=== PATIENT | male | born 1940 | race Hispanic/Latino ===

== ENCOUNTER 2016-09-13 03:03 | Emergency (ER) | payer MEDICARE ==
--- NOTE | 2016-09-13 06:49 | Cat Scan Report ---
FINAL REPORT PROCEDURE: CT CERVICAL SPINE WO CON TECHNIQUE: Computerized tomography of the cervical spine was performed from the skull base to T1 without contrast material. HISTORY: fall, hematoma to headfall COMPARISON: No prior studies are available for comparison. FINDINGS: The alignment is normal. The heights of the vertebral bodies are maintained. There is loss of disc space height at the C3-4, C4-5, C5-6 and C6-7 levels. Moderate spur formation off the vertebral bodies is identified from the C3 through the C7 vertebral levels. No acute fracture or dislocation of the cervical spine. The AP spinal canal is adequate at all levels. Mild narrowing of the neuroforamen on the right is identified at the C 4 5 and C5-6 levels. IMPRESSION: There is no evidence of an acute fracture dislocation of the cervical spine. Moderate arthritis and degenerative disc changes as described..
[2016-09-13] MEDS ORDERED: ULTRAM PO ONE (07:24)
--- NOTE | 2016-09-13 07:28 | Emergency Department Report ---
ED Fall HPI - General Chief Complaint: Fall Stated Complaint: FALL Time Seen by Provider: 09/13/16 06:08 Source: patient, EMS Mode of arrival: Stretcher Limitations: No Limitations - History of Present Illness Initial Comments: 76-year-old male with a past medical history hypertension , CAD with bypass, and psychiatric disorder presents to the hospital from assisted living status post fall. Patient was ambulating to the rest with a walker and fell and struck his forehead. Positive contusion to forehead. No LOC reported. Fall was unwitnessed. Patient alert and oriented 3. Pain is reported mild to moderate at this time. at the bedside assisting with history of present illness. - Related Data Home Medications Medication Instructions Recorded Confirmed Last Taken No Known Home Medications [No 09/13/16 09/13/16 Unknown Reported Home Medications] Allergies Allergy/AdvReac Type Severity Reaction Status Date / Time No Known Allergies Allergy Unverified 09/13/16 03:25 ED Review of Systems ROS: Stated complaint: FALL Other details as noted in HPI Comment: All other systems reviewed and negative Other: Constitutional: No fevers chills Eyes: No eye pain visual changes ENT: No ear pain or throat pain Neck: Denies pain Respiratory: Denies cough wheezing shortness of breath Cardiovascular: Denies chest pain, palpitations, syncope GI: Denies abdominal pain, nausea, vomiting, diarrhea : Denies dysuria, urinary frequency, or urgency Musculoskeletal: Denies back pain, joint swelling Skin: Denies rash, lesions, erythema Neurologic: Positive headache Psychiatric: Denies suicidal ideation, hallucinations ED Past Medical Hx - Past Medical History Hx Hypertension: Yes Hx Psychiatric Treatment: Yes - Surgical History Hx Open Heart Surgery: Yes (cabg) - Social History Smoking Status: Current Every Day Smoker - Medications Home Medications: Home Medications Medication Instructions Recorded Confirmed Last Taken Type No Known Home Medications [No 09/13/16 09/13/16 Unknown History Reported Home Medications] ED Physical Exam - General Limitations: No Limitations - Other Other exam information: General: No limitations, patient is alert in no acute distress Head exam: Forehead contusion Eyes exam: Normal appearance, pupils equal reactive to light, extraocular movements intact ENT: Moist mucous membrane, normal oropharynx Neck exam: Normal inspection, full range of motion, no meningismus, mild generalized tenderness to posterior neck Respiratory exam: Clear to auscultation bilateral, no wheezes, rales, crackles, sternotomy scar Cardiovascular: Normal rate and rhythm, normal heart sounds Abdomen: Soft, nondistended, and nontender, with normal bowel sounds, no rebound, or guarding Extremity: Full range of motion normal inspection no deformity Back: Normal Inspection, full range of motion, no tenderness Neurologic: Alert, oriented x3, cranial nerves intact, equal hand restorative coordinator or foot dorsiflexion Psychiatric: normal affect, normal mood Skin: Warm, dry, intact ED Course Vital Signs 09/13/16 09/13/16 09/13/16 03:10 03:36 03:40 Temperature 98.4 F Pulse Rate 70 Respiratory 20 Rate Blood Pressure 119/65 109/67 Blood Pressure [Right] O2 Sat by Pulse 99 98 97 Oximetry 09/13/16 09/13/16 09/13/16 03:47 03:50 04:00 Temperature 98.5 F Pulse Rate 89 Respiratory 15 Rate Blood Pressure 124/67 120/68 Blood Pressure 115/68 [Right] O2 Sat by Pulse 98 98 99 Oximetry 09/13/16 09/13/16 09/13/16 04:10 04:11 04:20 Temperature Pulse Rate Respiratory 14 Rate Blood Pressure 120/68 116/66 Blood Pressure [Right] O2 Sat by Pulse 99 98 98 Oximetry 09/13/16 09/13/16 09/13/16 04:30 04:40 04:47 Temperature 98.5 F Pulse Rate 89 Respiratory Rate Blood Pressure 121/70 121/70 Blood Pressure [Right] O2 Sat by Pulse 99 Oximetry - Reevaluation(s) Reevaluation #1: 09/13/16 07:27 tramadol ordered for pain, per family request ED Medical Decision Making - Radiology Data Radiology results: report reviewed CT cervical spine: No acute fracture or dislocation. Moderate arthritis and degenerative disc changes CT head: No acute process. Moderate atrophy and periventricular deep white matter changes are noted - Medical Decision Making Patient received tramadol for pain. Patient had baseline mental status. Patient be discharged back to assisted living facility - Differential Diagnosis fracture, contusion, sprain, intracranial hemorrhage Critical Care Time: No Critical care attestation.: If time is entered above; I have spent that time in minutes in the direct care of this critically ill patient, excluding procedure time. ED Disposition Clinical Impression: Minor head injury, Fall Disposition: DISCHARGED TO HOME OR SELFCARE Is pt being admited?: No Does the pt Need Aspirin: No Condition: Stable Instructions: Fall Prevention for Older Adults (ED), Minor Head Injury (ED) Additional Instructions: Continue current tramadol as needed for pain. Follow-up with your doctor within 3-5 days. Please return if symptoms worsen. Referrals: PRIMARY CARE, [Primary Care Provider] - 3-5 Days Time of Disposition: 07:52
[2016-09-13 08:11] VITALS: BP 121/58
--- NOTE | 2016-09-13 11:16 | Cat Scan Report ---
CT HEAD WITHOUT CONTRAST INDICATION: Fall, hematoma to head. COMPARISON: None similar at this institution. FINDINGS: Noncontrast head CT limited due to patient head tilt/position, though demonstrates age appropriate ventricles and predominantly bifrontal moderate sulcal enlargement with extra-axial CSF spaces measuring up to 1 cm on the right and 0.7 cm on the left, axial image 35, series 2. Slight periventricular hypodensities. No definite acute infarct, hemorrhage, mass effect or midline shift. Normal posterior fossa with preserved basilar cisterns. Normal imaged eye globes. Rightward nasal septal bowing and approximately 4 mm rightward nasal septal spur. Moderate to severe right frontal sinus opacification, possibly complex/hemorrhagic with few nonspecific small foci of air inferiorly as on axial series 3, images 17-19, in close proximity to the superior aspect of the right orbit. Mild left maxillary sinus mucosal thickening/air-fluid level also noted. Mild bilateral ethmoid sinusitis anteriorly. Clear remainder imaged paranasal sinuses and mastoid air cells. Mild right external auditory canal debris may be directly visualized. Mild atherosclerotic internal carotid artery calcifications. No significantly depressed skull fractures, though subtle right frontal sinus anterior wall fracture suspected as on axial image 28, series 3. Mild right frontal scalp soft tissue swelling/hematoma. Nasal bone fracture on the left also suspected with approximately 1 mm displacement, axial image 7, series 3. Edentulous jaw. CONCLUSION: 1. Right frontal posttraumatic CT changes, including subtle nondisplaced fracture of the anterior wall of the right frontal sinus with hemorrhagic sinus opacification, as detailed above. Subtle right orbital roof bony abnormality also not entirely excluded on this exam and may be further clarified by dedicated facial CT, if warranted. 2. No acute intracranial CT abnormality with predominantly bifrontal sulcal atrophy and various other incidental findings, as described. Please note that this exam is now presented to me for interpretation. Thank you for the opportunity to participate in this patient's care.
== END 2016-09-13 08:17 | disposition home or self-care (01) ==
LOC: ED 03:03
DX: S09.90XA Unspecified injury of head, initial encounter (principal); I10 Essential (primary) hypertension; F17.200 Nicotine dependence, unspecified, uncomplicated; I25.810 Atherosclerosis of coronary artery bypass graft(s) without angina pectoris; W18.39XA Other fall on same level, initial encounter; Y93.89 Activity, other specified; Y99.8 Other external cause status; Y92.89 Other specified places as the place of occurrence of the external cause
CPT/HCPCS: 70450; 72125

== ENCOUNTER 2016-12-09 19:03 | Emergency (ER) | payer MEDICARE ==
--- NOTE | 2016-12-09 20:32 | Emergency Department Report ---
ED General Adult HPI - General Chief complaint: Fall Stated complaint: FALL Time Seen by Provider: 12/09/16 20:19 Source: family, EMS (ems notes not available at time of chart dictation), RN notes reviewed Mode of arrival: Stretcher Limitations: Other (patient is a poor historian, has dementia.) - History of Present Illness Initial comments: This is a 76-year-old male. He is previously unknown to me. Patient has a history of dementia, and typically walks with a walker. He is accompanied today by his daughter and by his . They report that the patient was walking outside, helping out with the guarding, and accidentally fell onto his buttocks. He did not hit his head. He had no symptoms prior to the fall. There is no headache, neck pain, chest pain, abdominal pain or shortness of breath. The family reports the patient appears to be at his baseline. -: Sudden Severity scale (0 -10): 0 Improves with: none Worsens with: none Associated Symptoms: denies other symptoms - Related Data Home Medications Medication Instructions Recorded Confirmed Last Taken Ascorbic Acid [Vitamin C] 500 mg PO BID 09/13/16 09/13/16 Unknown Aspirin EC [Aspirin Enteric Coated 81 mg PO QDAY 09/13/16 09/13/16 Unknown TAB] Finasteride [Proscar] 5 mg PO QDAY 09/13/16 09/13/16 Unknown Haloperidol [Haldol] 2 mg PO BID 09/13/16 09/13/16 Unknown Hydroxyzine HCl 25 mg PO QHS 09/13/16 09/13/16 Unknown Loperamide [Imodium] 2 mg PO Q2HR PRN 09/13/16 09/13/16 Unknown Multivitamin with Iron 1 each PO QDAY 09/13/16 09/13/16 Unknown [Multivitamins with Iron] Naproxen [Naprosyn] 500 mg PO QAM 09/13/16 09/13/16 Unknown Psyllium Seed (with Sugar) 1 each PO BID 09/13/16 09/13/16 Unknown [Metamucil] Simvastatin [Zocor TAB] 40 mg PO QHS 09/13/16 09/13/16 Unknown Topiramate [Topamax] 200 mg PO BID 09/13/16 09/13/16 Unknown Venlafaxine HCl [Venlafaxine] 100 mg PO TIDWM 09/13/16 09/13/16 Unknown clonazePAM 1.5 mg PO QHS 09/13/16 09/13/16 Unknown traMADol [Ultram] 50 mg PO BID PRN 09/13/16 09/13/16 Unknown Allergies Allergy/AdvReac Type Severity Reaction Status Date / Time diazepam [From Valium] AdvReac Mild Unknown Verified 12/09/16 20:04 ED Review of Systems ROS: Stated complaint: FALL Other details as noted in HPI Constitutional: denies: fever Eyes: denies: vision change ENT: denies: epistaxis Respiratory: denies: cough Cardiovascular: denies: chest pain Gastrointestinal: denies: abdominal pain Genitourinary: as per HPI. denies: dysuria Musculoskeletal: as per HPI Skin: lesions (chronic) Neurological: as per HPI, confusion (chronic and unchanged) ED Past Medical Hx - Past Medical History Previous Medical History?: Yes Hx Hypertension: Yes Hx Psychiatric Treatment: Yes (bipolar and paranoid schizophrenia) Hx Dementia: Yes - Surgical History Past Surgical History?: Yes Hx Open Heart Surgery: Yes (cabg) - Social History Smoking Status: Unknown if ever smoked Substance Use Type: None - Medications Home Medications: Home Medications Medication Instructions Recorded Confirmed Last Taken Type Ascorbic Acid [Vitamin C] 500 mg PO BID 09/13/16 09/13/16 Unknown History Aspirin EC [Aspirin Enteric Coated 81 mg PO QDAY 09/13/16 09/13/16 Unknown History TAB] Finasteride [Proscar] 5 mg PO QDAY 09/13/16 09/13/16 Unknown History Haloperidol [Haldol] 2 mg PO BID 09/13/16 09/13/16 Unknown History Hydroxyzine HCl 25 mg PO QHS 09/13/16 09/13/16 Unknown History Loperamide [Imodium] 2 mg PO Q2HR PRN 09/13/16 09/13/16 Unknown History Multivitamin with Iron 1 each PO QDAY 09/13/16 09/13/16 Unknown History [Multivitamins with Iron] Naproxen [Naprosyn] 500 mg PO QAM 09/13/16 09/13/16 Unknown History Psyllium Seed (with Sugar) 1 each PO BID 09/13/16 09/13/16 Unknown History [Metamucil] Simvastatin [Zocor TAB] 40 mg PO QHS 09/13/16 09/13/16 Unknown History Topiramate [Topamax] 200 mg PO BID 09/13/16 09/13/16 Unknown History Venlafaxine HCl [Venlafaxine] 100 mg PO TIDWM 09/13/16 09/13/16 Unknown History clonazePAM 1.5 mg PO QHS 09/13/16 09/13/16 Unknown History traMADol [Ultram] 50 mg PO BID PRN 09/13/16 09/13/16 Unknown History ED Physical Exam - General Limitations: Other (the patient is demented, but the family corroborates that the patient is at his normal mental status. The patient follows commands, and both the patient's and daughter indicate that the patient is at his normal mental status.) General appearance: alert, in no apparent distress - Head Head exam: Present: atraumatic, normocephalic - Eye Eye exam: Present: normal appearance, EOMI - ENT ENT exam: Present: normal exam, normal orophraynx, mucous membranes moist, normal external ear exam - Neck Neck exam: Present: normal inspection, full ROM. Absent: tenderness, meningismus - Respiratory Respiratory exam: Present: normal lung sounds bilaterally. Absent: respiratory distress, wheezes, rales, rhonchi, stridor, chest wall tenderness, accessory muscle use, decreased breath sounds, prolonged expiratory - Cardiovascular Cardiovascular Exam: Present: normal rhythm, bradycardia, normal heart sounds. Absent: systolic murmur, diastolic murmur, rubs, gallop - GI/Abdominal GI/Abdominal exam: Present: soft, normal bowel sounds. Absent: distended, tenderness, guarding, rebound, rigid, pulsatile mass - Rectal Rectal exam: Present: normal inspection - Extremities Exam Extremities exam: Present: normal inspection, full ROM, normal capillary refill. Absent: pedal edema, joint swelling, calf tenderness - Back Exam Back exam: Present: normal inspection, full ROM. Absent: tenderness, CVA tenderness (R), CVA tenderness (L), muscle spasm, paraspinal tenderness, vertebral tenderness - Neurological Exam Neurological exam: Present: alert, other (the patient walks with a one-person assist. There is no facial droop. Extraocular movements are intact bilaterally. There is 5/5 strength in 4 extremities. Sensation is intact to light touch in [place] remedies.) - Psychiatric Psychiatric exam: Present: normal affect, normal mood - Skin Skin exam: Present: warm, other (patient has numerous rashes on his back and chest, consistent with history of known chronic eczema) ED Course Vital Signs 12/09/16 12/09/16 12/09/16 19:45 20:00 20:05 Temperature 98.5 F Pulse Rate 52 L 51 L Respiratory 17 12 17 Rate Blood Pressure 119/52 110/57 Blood Pressure 119/52 [Right] O2 Sat by Pulse 99 96 99 Oximetry 12/09/16 12/09/16 12/09/16 20:43 21:01 21:31 Temperature Pulse Rate 53 L 55 L 53 L Respiratory 11 L 15 12 Rate Blood Pressure 113/53 117/57 130/61 Blood Pressure [Right] O2 Sat by Pulse 99 100 99 Oximetry 12/09/16 22:00 Temperature Pulse Rate Respiratory Rate Blood Pressure 130/61 Blood Pressure [Right] O2 Sat by Pulse Oximetry ED Medical Decision Making - Lab Data Vital Signs 12/09/16 12/09/16 12/09/16 19:45 20:00 20:05 Temperature 98.5 F Pulse Rate 52 L 51 L Respiratory 17 12 17 Rate Blood Pressure 119/52 110/57 Blood Pressure 119/52 [Right] O2 Sat by Pulse 99 96 99 Oximetry 12/09/16 12/09/16 20:43 21:01 Temperature Pulse Rate 53 L 55 L Respiratory 11 L 15 Rate Blood Pressure 113/53 117/57 Blood Pressure [Right] O2 Sat by Pulse 99 100 Oximetry Labs 12/09/16 20:37 Urine Color Yellow Urine Turbidity Clear Urine pH 5.0 Ur Specific Chloe 1.023 Urine Protein <15 mg/dl Urine Glucose (UA) Neg Urine Ketones Tr Urine Blood Neg Urine Nitrite Neg Urine Bilirubin Neg Urine Urobilinogen < 2.0 Ur Leukocyte Esterase Neg Urine WBC (Auto) 4.0 Urine RBC (Auto) 4.0 U Epithel Cells (Auto) < 1.0 Calcium Oxalate Crystal 1+ Urine Mucus Few - Medical Decision Making Differential diagnosis: Mechanical fall, chronic dementia, chronic debility, urinary tract infection, general medical evaluation Assessment and plan: 76-year-old male who is brought to the hospital by family after minor mechanism fall where he did not hit his head or his neck. The patient is afebrile, with unremarkable vital signs, and his family corroborates the patient is at his normal mental status. Given the mechanism of fall, and the fact that the patient does not have trauma appears to the clavicles, I don' t believe he requires advanced neuro imaging, and family, through shared decision making agree. Urinalysis is not consistent with UTI. The patient was observed in the ER for a few hours without clinical decompensation. He will be discharged with instructions to follow up with his outpatient primary care doctor, the family feels comfortable to care for him. He will be discharged at this time. Critical care attestation.: If time is entered above; I have spent that time in minutes in the direct care of this critically ill patient, excluding procedure time. ED Disposition Clinical Impression: Fall Disposition: DC-01 TO HOME OR SELFCARE Is pt being admited?: No Does the pt Need Aspirin: No Condition: Stable Instructions: Fall Prevention (ED) Additional Instructions: Continue current outpatient medications. Follow-up with her primary care doctor as scheduled. Make certain the patient walks with a walker. Return to the ER right away with fevers, chills, chest pain, shortness of breath, confusion, nausea or vomiting, inability to tolerate liquid feeds. Cultures were sent today, was also be available next 3-5 days. Please have your primary care doctor contact the medical records department to obtain culture results. Referrals: NED LOW MD [Primary Care Provider] - 3-5 Days CHRIS IBARRA MD [Staff Physician] - 3-5 Days
[2016-12-09 21:18] LABS: Bilirubin,Urine NEG (Negative); Blood,Urine NEG (Negative); Ketones,Urine TR mg/dL (Negative); Leukocyte Esterase,Urine NEG (Negative); Mucus,Urine FEW /HPF; Nitrite,Urine NEG (Negative); Protein,Urine <15 mg/dL mg/dL (Negative); Urobilinogen,Urine < 2.0 mg/dL (<2.0)
[2016-12-09 21:50] VITALS: BP 130/61
== END 2016-12-09 22:16 | disposition home or self-care (01) ==
LOC: ED 19:03
DX: Z04.3 Encounter for examination and observation following other accident (principal); F20.0 Paranoid schizophrenia; F03.90 Unspecified dementia, unspecified severity, without behavioral disturbance, psychotic disturbance, mood disturbance, and anxiety; I10 Essential (primary) hypertension; Z88.8 Allergy status to other drugs, medicaments and biological substances; Z79.82 Long term (current) use of aspirin; Z95.1 Presence of aortocoronary bypass graft; W19.XXXA Unspecified fall, initial encounter; Y93.89 Activity, other specified; Y99.8 Other external cause status; Y92.89 Other specified places as the place of occurrence of the external cause
CPT/HCPCS: 51701; 81001; 87086